=== PATIENT | male | born 1965 ===

== ENCOUNTER 2017-06-15 16:57 | Inpatient (IN) ==
[2017-06-15] MEDS ORDERED: ALBUTEROL/IPRATROPIUM 3 ML NEB RESP TX STA (17:34)
[2017-06-15 18:22] LABS: Basophils % 0.2 % (0.0-0.8); Eosinophils # 0.1 10*3/uL (0.0-0.87); Eosinophils % 0.7 % (0.00-10.9); Hematocrit 30.5 VOL% (42.0-52.0); Hemoglobin 10.2 GM/DL (14.0-18.0); Immature Granulocytes % 0.9 %; Immature Granulocytes Absolute 0.15 #; Lymphocytes # 1.2 10*3/uL (1.4-4.0); Lymphocytes % 6.9 % (21.2-54.2); Mean Corpuscular HGB Conc 33.4 GM/DL (32-36); Mean Corpuscular Hemoglobin 28 PG (27-34); Mean Corpuscular Volume 83.8 FL (87-102); Mean Platelet Volume 10.6 FL (9.6-12.0); Monocytes # 1.4 10*3/uL (0.11-0.8); Monocytes % 7.9 % (1.7-12.7); Neutrophils # 14.3 10*3/uL (1.4-7.4); Neutrophils % 83.4 % (38.7-73.9); Platelet Count 302 T/CUMM (130-400); Red Blood Count 3.64 MC/CUMM (3.8-5.5); Red Cell Distribution Width 12.8 % (9.3-17.3); White Blood Count 17.1 T/CUMM (4-12)
[2017-06-15] MEDS ORDERED: GLUCAGON 1 MG VIAL IM PRN (18:28)
[2017-06-15] MEDS ORDERED: DEXTROSE 50% 25 GM/50 ML VIAL IV PRN (18:28)
[2017-06-15] MEDS ORDERED: MORPHINE 2 MG/1 ML SYRINGE IV PRN (18:28)
[2017-06-15] MEDS ORDERED: ONDANSETRON 4 MG/2 ML VIAL IV PRN (18:28)
[2017-06-15 18:49] LABS: Lactic Acid 1.1 MMOL/L (0.4-2.0)
[2017-06-15 18:55] LABS: Bilirubin,Total 0.4 MG/DL (0.2-1.0); Calcium 8.1 MG/DL (8.5-10.1); Magnesium 2.4 MG/DL (1.8-2.4); Osmolality,Calculated 278.4 MOS/KG (273-304); Potassium 4.1 MMOL/L (3.5-5.1); Total Protein 6.9 G/DL (6.4-8.3)
[2017-06-15 19:09] LABS: Troponin I Only < 0.015 NG/ML (0.00-0.045)
[2017-06-15 19:26] LABS: Apearance,Urine Slightly Hazy (Clear); Bacteria,Urine Occasional /HPF (Few); Bilirubin,Urine Negative (Negative); Blood, Urine Moderate mg/dL (Negative); Glucose,Urine (UA) >=500 mg/dL (Negative); Granular Casts,Urine 1 /LPF (0-1); Ketones,Urine Negative (Negative); Mucus,Urine Occasional /LPF (Occasional); Nitrite,Urine Negative (Negative); Protein,Urine >=500 MG/DL; RBC,Urine 5 /HPF (0-4); Squamous Epithelial Cell,Urine Occasional /HPF (0-10); Urine Color Yellow (Yellow); Urine Specific Gravity 1.011 (1.001-1.035); Urine Urobilinogen < 2.0 EU/DL (0.2-1.0); WBC,Urine 3 /HPF (0-6)
[2017-06-15] MEDS: SODIUM CHLORIDE 0.9% 1,000 ML IV SCH (21:32)
[2017-06-15] MEDS: INSULIN LISPRO 100 UNIT/ML SUBCUT SCH (22:14)
[2017-06-15] MEDS: SIMVASTATIN 40 MG TABLET PO SCH (22:15)
[2017-06-15] MEDS: INSULIN GLARGINE 100 UNIT/ML SUBCUT SCH (22:15)
[2017-06-15] MEDS: GABAPENTIN 300 MG CAPSULE PO SCH (22:15)
[2017-06-15] MEDS: LUBIPROSTONE 24 MCG CAPSULE PO SCH (22:16)
[2017-06-16] MEDS: VANCOMYCIN INJ 1,250 MG in SODIUM CHLORIDE 0.45% 250 ML IV SCH ×2 (00:16→13:23)
[2017-06-16] MEDS ORDERED: VANCOMYCIN INJ 1,250 MG in SODIUM CHLORIDE 0.45% 250 ML IV SCH (01:00)
[2017-06-16] MEDS: PIPERACILLIN/TAZOBACTAM 3,375 MG in SODIUM CHLORIDE 0.9% 100 ML IV SCH ×4 (01:34→21:55)
[2017-06-16] MEDS: ALBUTEROL/IPRATROPIUM 3 ML NEB RESP TX SCH ×4 (01:45→18:47)
[2017-06-16] MEDS: ACETAMINOPHEN 325 MG TABLET PO PRN (02:03)
[2017-06-16] MEDS: MOMETASONE 220 MCG/PUFF INHALER 14 DOSE INH SCH ×3 (02:04→22:17)
[2017-06-16] MEDS ORDERED: ALBUTEROL 2.5 MG/3 ML NEB RESP TX SCH (07:00)
[2017-06-16 07:03] LABS: Basophils % 0.2 % (0.0-0.8); Eosinophils # 0.1 10*3/uL (0.0-0.87); Eosinophils % 0.8 % (0.00-10.9); Hematocrit 27.9 VOL% (42.0-52.0); Hemoglobin 9.3 GM/DL (14.0-18.0); Immature Granulocytes % 0.7 %; Immature Granulocytes Absolute 0.09 #; Mean Corpuscular HGB Conc 33.3 GM/DL (32-36); Mean Corpuscular Hemoglobin 28 PG (27-34); Mean Corpuscular Volume 85.1 FL (87-102); Mean Platelet Volume 10.4 FL (9.6-12.0); Monocytes # 0.9 10*3/uL (0.11-0.8); Monocytes % 6.9 % (1.7-12.7); Neutrophils # 10.6 10*3/uL (1.4-7.4); Neutrophils % 83.4 % (38.7-73.9); Platelet Count 300 T/CUMM (130-400); Red Blood Count 3.28 MC/CUMM (3.8-5.5); Red Cell Distribution Width 13.1 % (9.3-17.3); White Blood Count 12.6 T/CUMM (4-12)
[2017-06-16 07:44] LABS: Calcium 7.6 MG/DL (8.5-10.1); Osmolality,Calculated 284.1 MOS/KG (273-304); Potassium 4.7 MMOL/L (3.5-5.1); Risk Ratio 4.38
[2017-06-16] MEDS: INSULIN LISPRO 100 UNIT/ML SUBCUT SCH ×4 (09:37→22:22)
[2017-06-16] MEDS: LUBIPROSTONE 24 MCG CAPSULE PO SCH ×2 (09:38→22:22)
[2017-06-16] MEDS: ASPIRIN EC 81 MG TABLET PO SCH (09:39)
[2017-06-16] MEDS: CARVEDILOL 3.125 MG TABLET PO SCH (09:39)
[2017-06-16] MEDS: PANTOPRAZOLE 40 MG TABLET PO SCH (09:40)
[2017-06-16] MEDS: GABAPENTIN 300 MG CAPSULE PO SCH ×3 (09:40→22:16)
[2017-06-16] MEDS: MONTELUKAST 10 MG TABLET PO SCH (09:40)
[2017-06-16] MEDS: INSULIN GLARGINE 100 UNIT/ML SUBCUT SCH ×2 (09:49→22:22)
[2017-06-16] MEDS: SODIUM CHLORIDE 0.9% 1,000 ML IV SCH ×2 (10:42→18:45)
[2017-06-16] MEDS: LOSARTAN 25 MG TABLET PO SCH (11:50)
[2017-06-16] MEDS: SODIUM HYPOCHLORITE 0.25% IRRIG 473 ML BOTTLE TOP SCH (17:11)
[2017-06-16] MEDS: SIMVASTATIN 40 MG TABLET PO SCH (22:17)
[2017-06-16] MEDS: LACTOBACILLUS ACIDOPHILUS/BULGARICUS CHEW TABLET PO SCH (22:23)
[2017-06-17] MEDS: ALBUTEROL/IPRATROPIUM 3 ML NEB RESP TX SCH ×4 (01:06→19:51)
[2017-06-17] MEDS: VANCOMYCIN INJ 1,250 MG in SODIUM CHLORIDE 0.45% 250 ML IV SCH ×2 (02:00→14:03)
[2017-06-17] MEDS: PIPERACILLIN/TAZOBACTAM 3,375 MG in SODIUM CHLORIDE 0.9% 100 ML IV SCH ×3 (05:04→23:50)
[2017-06-17] MEDS ORDERED: GLUCAGON 1 MG VIAL IM PRN (07:25)
[2017-06-17] MEDS ORDERED: DEXTROSE 50% 25 GM/50 ML VIAL IV PRN (07:25)
[2017-06-17 07:31] LABS: Basophils % 0.3 % (0.0-0.8); Eosinophils # 0.2 10*3/uL (0.0-0.87); Eosinophils % 1.9 % (0.00-10.9); Hematocrit 27.5 VOL% (42.0-52.0); Immature Granulocytes % 0.6 %; Immature Granulocytes Absolute 0.07 #; Lymphocytes # 0.9 10*3/uL (1.4-4.0); Lymphocytes % 7.5 % (21.2-54.2); Mean Corpuscular HGB Conc 32.7 GM/DL (32-36); Mean Corpuscular Hemoglobin 28 PG (27-34); Mean Corpuscular Volume 85.9 FL (87-102); Mean Platelet Volume 10.6 FL (9.6-12.0); Monocytes % 8.3 % (1.7-12.7); Neutrophils # 9.7 10*3/uL (1.4-7.4); Neutrophils % 81.4 % (38.7-73.9); Platelet Count 347 T/CUMM (130-400); Red Cell Distribution Width 13.3 % (9.3-17.3); White Blood Count 11.9 T/CUMM (4-12)
[2017-06-17 07:44] LABS: Calcium 7.5 MG/DL (8.5-10.1); Osmolality,Calculated 278.1 MOS/KG (273-304); Potassium 4.4 MMOL/L (3.5-5.1)
[2017-06-17] MEDS: MOMETASONE 220 MCG/PUFF INHALER 14 DOSE INH SCH ×2 (09:49→22:14)
[2017-06-17] MEDS: INSULIN LISPRO 100 UNIT/ML SUBCUT SCH ×4 (09:50→22:15)
[2017-06-17] MEDS: INSULIN GLARGINE 100 UNIT/ML SUBCUT SCH ×2 (09:50→22:15)
[2017-06-17] MEDS: CARVEDILOL 3.125 MG TABLET PO SCH (09:51)
[2017-06-17] MEDS: LACTOBACILLUS ACIDOPHILUS/BULGARICUS CHEW TABLET PO SCH ×3 (09:51→23:00)
[2017-06-17] MEDS: LOSARTAN 25 MG TABLET PO SCH (09:51)
[2017-06-17] MEDS: GABAPENTIN 300 MG CAPSULE PO SCH ×3 (09:51→22:14)
[2017-06-17] MEDS: LUBIPROSTONE 24 MCG CAPSULE PO SCH ×2 (09:51→22:13)
[2017-06-17] MEDS: MONTELUKAST 10 MG TABLET PO SCH (09:51)
[2017-06-17] MEDS: ASPIRIN EC 81 MG TABLET PO SCH (09:51)
[2017-06-17] MEDS: PANTOPRAZOLE 40 MG TABLET PO SCH (09:51)
[2017-06-17] MEDS: SODIUM CHLORIDE 0.9% 1,000 ML IV SCH ×3 (13:04→16:38)
[2017-06-17] MEDS: SODIUM HYPOCHLORITE 0.25% IRRIG 473 ML BOTTLE TOP SCH (13:04)
[2017-06-17] MEDS ORDERED: VANCOMYCIN INJ 1,250 MG in SODIUM CHLORIDE 0.45% 250 ML IV SCH (20:00)
[2017-06-17] MEDS: SIMVASTATIN 40 MG TABLET PO SCH (22:14)
[2017-06-18] MEDS: ALBUTEROL/IPRATROPIUM 3 ML NEB RESP TX SCH ×4 (00:01→19:48)
[2017-06-18] MEDS: SODIUM CHLORIDE 0.9% 1,000 ML IV SCH ×2 (02:33→08:38)
[2017-06-18] MEDS: guaiFENesin 200 MG/10 ML UDCUP PO PRN ×2 (03:46→18:01)
[2017-06-18 05:54] LABS: Basophils % 0.2 % (0.0-0.8); Eosinophils # 0.4 10*3/uL (0.0-0.87); Eosinophils % 3.4 % (0.00-10.9); Hematocrit 28.3 VOL% (42.0-52.0); Hemoglobin 9.5 GM/DL (14.0-18.0); Immature Granulocytes % 0.5 %; Immature Granulocytes Absolute 0.06 #; Lymphocytes # 0.9 10*3/uL (1.4-4.0); Lymphocytes % 7.8 % (21.2-54.2); Mean Corpuscular HGB Conc 33.6 GM/DL (32-36); Mean Corpuscular Hemoglobin 28 PG (27-34); Mean Corpuscular Volume 83.7 FL (87-102); Monocytes # 0.9 10*3/uL (0.11-0.8); Monocytes % 8.5 % (1.7-12.7); NRBC # 0.03 10*3/uL; Neutrophils # 8.9 10*3/uL (1.4-7.4); Neutrophils % 79.6 % (38.7-73.9); Platelet Count 353 T/CUMM (130-400); Red Blood Count 3.38 MC/CUMM (3.8-5.5); Red Cell Distribution Width 13.4 % (9.3-17.3); White Blood Count 11.1 T/CUMM (4-12)
[2017-06-18 06:26] LABS: Calcium 7.8 MG/DL (8.5-10.1); Magnesium 2.5 MG/DL (1.8-2.4); Osmolality,Calculated 278.7 MOS/KG (273-304); Potassium 4.3 MMOL/L (3.5-5.1)
[2017-06-18 06:29] LABS: Calcium 7.6 MG/DL (8.5-10.1); Osmolality,Calculated 280.5 MOS/KG (273-304); Potassium 4.4 MMOL/L (3.5-5.1)
[2017-06-18] MEDS: INSULIN LISPRO 100 UNIT/ML SUBCUT SCH ×4 (08:37→20:37)
[2017-06-18] MEDS: LACTOBACILLUS ACIDOPHILUS/BULGARICUS CHEW TABLET PO SCH ×2 (09:38→20:52)
[2017-06-18] MEDS: LUBIPROSTONE 24 MCG CAPSULE PO SCH ×2 (09:38→20:52)
[2017-06-18] MEDS: GABAPENTIN 300 MG CAPSULE PO SCH ×3 (09:38→20:52)
[2017-06-18] MEDS: PANTOPRAZOLE 40 MG TABLET PO SCH (09:38)
[2017-06-18] MEDS: LOSARTAN 25 MG TABLET PO SCH (09:38)
[2017-06-18] MEDS: CARVEDILOL 3.125 MG TABLET PO SCH (09:39)
[2017-06-18] MEDS: MONTELUKAST 10 MG TABLET PO SCH (09:39)
[2017-06-18] MEDS: ASPIRIN EC 81 MG TABLET PO SCH (09:39)
[2017-06-18] MEDS: PIPERACILLIN/TAZOBACTAM 3,375 MG in SODIUM CHLORIDE 0.9% 100 ML IV SCH ×2 (09:41→18:01)
[2017-06-18] MEDS: SODIUM HYPOCHLORITE 0.25% IRRIG 473 ML BOTTLE TOP SCH (09:50)
[2017-06-18] MEDS: INSULIN GLARGINE 100 UNIT/ML SUBCUT SCH ×2 (09:50→20:51)
[2017-06-18] MEDS: MOMETASONE 220 MCG/PUFF INHALER 14 DOSE INH SCH ×2 (09:50→20:52)
[2017-06-18] MEDS: SIMVASTATIN 40 MG TABLET PO SCH (20:52)
[2017-06-18] MEDS ORDERED: VANCOMYCIN INJ 1,250 MG in SODIUM CHLORIDE 0.45% 250 ML IV SCH (22:00)
[2017-06-19] MEDS: ALBUTEROL/IPRATROPIUM 3 ML NEB RESP TX SCH ×3 (00:34→13:17)
[2017-06-19] MEDS: PIPERACILLIN/TAZOBACTAM 3,375 MG in SODIUM CHLORIDE 0.9% 100 ML IV SCH ×2 (01:40→10:05)
[2017-06-19 07:07] LABS: Basophils % 0.3 % (0.0-0.8); Eosinophils # 0.4 10*3/uL (0.0-0.87); Eosinophils % 4.4 % (0.00-10.9); Hematocrit 27.9 VOL% (42.0-52.0); Hemoglobin 9.1 GM/DL (14.0-18.0); Immature Granulocytes % 0.6 %; Immature Granulocytes Absolute 0.06 #; Lymphocytes # 0.7 10*3/uL (1.4-4.0); Lymphocytes % 7.9 % (21.2-54.2); Mean Corpuscular HGB Conc 32.6 GM/DL (32-36); Mean Corpuscular Hemoglobin 28 PG (27-34); Mean Corpuscular Volume 85.6 FL (87-102); Mean Platelet Volume 9.8 FL (9.6-12.0); Monocytes # 0.8 10*3/uL (0.11-0.8); Monocytes % 8.1 % (1.7-12.7); Neutrophils # 7.4 10*3/uL (1.4-7.4); Neutrophils % 78.7 % (38.7-73.9); Platelet Count 375 T/CUMM (130-400); Red Blood Count 3.26 MC/CUMM (3.8-5.5); Red Cell Distribution Width 13.3 % (9.3-17.3); White Blood Count 9.4 T/CUMM (4-12)
[2017-06-19 07:44] LABS: Calcium 7.7 MG/DL (8.5-10.1); Osmolality,Calculated 287.5 MOS/KG (273-304); Potassium 4.4 MMOL/L (3.5-5.1)
[2017-06-19] MEDS: SODIUM HYPOCHLORITE 0.25% IRRIG 473 ML BOTTLE TOP SCH (08:20)
[2017-06-19] MEDS: INSULIN LISPRO 100 UNIT/ML SUBCUT SCH ×2 (08:31→13:45)
[2017-06-19] MEDS: INSULIN GLARGINE 100 UNIT/ML SUBCUT SCH (08:32)
[2017-06-19] MEDS: GABAPENTIN 300 MG CAPSULE PO SCH (08:34)
[2017-06-19] MEDS: LOSARTAN 25 MG TABLET PO SCH (08:34)
[2017-06-19] MEDS: CARVEDILOL 3.125 MG TABLET PO SCH (08:34)
[2017-06-19] MEDS: LUBIPROSTONE 24 MCG CAPSULE PO SCH (08:34)
[2017-06-19] MEDS: ASPIRIN EC 81 MG TABLET PO SCH (08:34)
[2017-06-19] MEDS: ACETAMINOPHEN 325 MG TABLET PO PRN (08:47)
[2017-06-19] MEDS: MOMETASONE 220 MCG/PUFF INHALER 14 DOSE INH SCH (08:48)
[2017-06-19] MEDS: LACTOBACILLUS ACIDOPHILUS/BULGARICUS CHEW TABLET PO SCH (09:00)
[2017-06-19] MEDS: PANTOPRAZOLE 40 MG TABLET PO SCH (11:35)
[2017-06-19] MEDS: MONTELUKAST 10 MG TABLET PO SCH (11:35)
[2017-06-19] MEDS ORDERED: amLODIPine 5 MG TABLET PO ONE (13:00)
[2017-06-19 15:28] VITALS: BP 165/92
== END 2017-06-19 14:30 | disposition home or self-care (01) | DRG 638 ==
LOC: EDUNIT# → EDBD → N.ED 16:57 → N.EDINP 17:30 → N.2E 20:47
PROVIDERS: ADMIT Internal Medicine; ATTEND Internal Medicine